=== PATIENT | male | born 2000 | race Caucasian/White ===

== ENCOUNTER 2019-05-30 | Emergency (ER) | payer BC | END 2019-05-30 21:45 | disposition home or self-care (01) | CPT/HCPCS: 87070; 87081; 99283 ==

== ENCOUNTER 2020-01-24 06:40 | Emergency (ER) | payer BC ==
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
--- NOTE | 2020-01-24 07:49 | ER ---
Nurse's Notes [facility] Name: Heriberto Duenas Age: 19 yrs Sex: Male : 2000 Arrival Date: 01/24/2020 Time: 06:45 Bed DIS1 Private MD: Diagnosis: Acute upper respiratory infection, unspecified;Bronchitis, not specified as acute or chronic;Vomiting;Diarrhea, unspecified Presentation: 01/23 07:13 Chief complaint: Patient states: cough, sneezing, SOB, diarrhea, fatigue, migraines, iw congestions, sinus pressure, vomited 3 times , symptoms started on Thanksgiving, tested for COVID yesterday and was negative , had rapid test done at [facility] urgent care. 07:13 Method Of Arrival: Ambulatory iw 07:16 Coronavirus screen: Client presents with at least one sign or symptom that may indicate iw coronavirus-19. Standard/surgical mask placed on the client. Provider contacted for isolation considerations. Ebola Screen: Patient negative for fever greater than or equal to 101.5 degrees Fahrenheit, and additional compatible Ebola Virus Disease symptoms Patient denies exposure to infectious person. Patient denies travel to an Ebola-affected area in the 21 days before illness onset. No symptoms or risks identified at this time. Initial Sepsis Screen: Does the patient meet any 2 criteria? No. Patient's initial sepsis screen is negative. Does the patient have a suspected source of infection? No. Patient's initial sepsis screen is negative. Risk Assessment: Do you want to hurt yourself or someone else? Patient reports no desire to harm self or others. Onset of symptoms was January 16, 2020. 07:16 Acuity: JASMIN 4 iw Historical: - Allergies: 07:18 NKA; iw - PMHx: 07:18 Asthma; iw - PSHx: 07:18 right leg; iw - Immunization history:: Adult Immunizations not up to date. - Social history:: Smoking status: Patient denies any tobacco usage or history of. Screenin:33 Abuse screen: Denies threats or abuse. Denies injuries from another. Nutritional ph screening: No deficits noted. Tuberculosis screening: No symptoms or risk factors identified. Fall Risk None identified. Assessment: 08:32 General: Appears in no apparent distress. comfortable, well groomed, Behavior is calm, ph cooperative, appropriate for age, Reports chills for fever for > 3 days. Pain: Complains of pain in headache. Neuro: Level of Consciousness is awake, alert, obeys commands, Oriented to person, place, time, situation, Reports headache. Cardiovascular: Capillary refill < 3 seconds in bilateral fingers. Respiratory: Reports shortness of breath on exertion cough that is Airway is patent Respiratory effort is even, unlabored, Respiratory pattern is regular, symmetrical. GI: Abdomen is non-distended, Reports diarrhea, nausea, vomiting, Patient currently denies abdominal pain. EENT: Reports nasal congestion pain when swallowing. Derm: Skin is intact, is healthy with good turgor, Skin is pink, warm \T\ dry. Musculoskeletal: Circulation, motion, and sensation intact. Range of motion: intact in all extremities. Vital Signs: 07:16 BP 146 / 90; Pulse 97; Resp 16; Temp 98.6; Pulse Ox 97% ; Weight 81.65 kg; Height 5 ft. iw 8 in. (172.72 cm); Pain 4/10; 08:34 BP 138 / 89; Pulse 91; Resp 18; Temp 98.5; Pulse Ox 97% on R/A; ph 07:16 Body Mass Index 27.37 (81.65 kg, 172.72 cm) iw ED Course: 06:45 Patient arrived in ED. ag3 07:17 Triage completed. iw 07:18 Arm band placed on. iw 07:23 Raúl Ferris MD is Attending Physician. liana 07:47 Nakul Cordoba DO is Referral Physician. liana 07:55 Kathrin Garcia, RN is Primary Nurse. ph 08:33 No provider procedures requiring assistance completed. COVID swab sent to lab. Flu ph and/or RSV swab sent to lab. Patient did not have IV access during this emergency room visit. 08:35 Patient has correct armband on for positive identification. Bed in low position. Call ph light in reach. Administered Medications: 08:22 Drug: Zithromax 500 mg Route: PO; ph 08:34 Follow up: Response: No adverse reaction ph Outcome: 07:48 Discharge ordered by . liana 08:35 Discharged to home ambulatory, with significant other. ph 08:35 Condition: good 08:35 Discharge instructions given to patient, Instructed on discharge instructions, follow up and referral plans. medication usage, Demonstrated understanding of instructions, follow-up care, medications, Prescriptions given X 5 08:36 Patient left the ED. ph Addendum: 01/27/2020 11:49 Addendum: COVID-19 Result: Negative result given to RN to notify pt. Attempted to i w contact pt regarding negative COVID-19 swab results. Left voice mail. 12:53 Addendum: COVID-19 Result: Negative result given to RN to notify pt. Notified pt of i w negative COVID 19 swab results. Pt advised that even with a negative test result they should remain in isolation until symptom free for 3 days without medication. Pt also advised to return to the ED for worsening symptoms. Signatures: Raúl Ferris MD MD cha Williams, Irene, RN RN iw Hall, Patricia, RN RN ph Gomez, Alice ag3
--- NOTE | 2020-01-24 07:49 | EDPHYS ---
Physician Documentation [facility] Name: Heriberto Duenas Age: 19 yrs Sex: Male : 2000 Arrival Date: 01/24/2020 Time: 06:45 Bed DIS1 Private MD: ED Physician Raúl Ferris HPI: 01/23 07:44 This 19 yrs old Male presents to ER via Ambulatory with complaints of liana Nausea/Vomiting/Diarrhea. 07:44 The patient presents to the emergency department with nausea, vomiting, diarrhea. liana Historical: - Allergies: 07:18 NKA; iw - PMHx: 07:18 Asthma; iw - PSHx: 07:18 right leg; iw - Immunization history:: Adult Immunizations not up to date. - Social history:: Smoking status: Patient denies any tobacco usage or history of. ROS: 07:44 Constitutional: Negative for fever, chills, and weight loss, Eyes: Negative for injury, liana pain, redness, and discharge, ENT: Negative for injury, pain, and discharge, Neck: Negative for injury, pain, and swelling, Cardiovascular: Negative for chest pain, palpitations, and edema, Back: Negative for injury and pain, : Negative for injury, bleeding, discharge, and swelling, MS/Extremity: Negative for injury and deformity, Skin: Negative for injury, rash, and discoloration, Neuro: Negative for headache, weakness, numbness, tingling, and seizure, Psych: Negative for depression, anxiety, suicide ideation, homicidal ideation, and hallucinations, Allergy/Immunology: Negative for hives, rash, and allergies, Endocrine: Negative for neck swelling, polydipsia, polyuria, polyphagia, and marked weight changes, Hematologic/Lymphatic: Negative for swollen nodes, abnormal bleeding, and unusual bruising. 07:44 Respiratory: Positive for cough, with green sputum. 07:44 Abdomen/GI: Positive for nausea and vomiting, diarrhea. Exam: 07:44 Constitutional: This is a well developed, well nourished patient who is awake, alert, liana and in no acute distress. Head/Face: Normocephalic, atraumatic. Eyes: Pupils equal round and reactive to light, extra-ocular motions intact. Lids and lashes normal. Conjunctiva and sclera are non-icteric and not injected. Cornea within normal limits. Periorbital areas with no swelling, redness, or edema. ENT: Nares patent. No nasal discharge, no septal abnormalities noted. Tympanic membranes are normal and external auditory canals are clear. Oropharynx with no redness, swelling, or masses, exudates, or evidence of obstruction, uvula midline. Mucous membranes moist. Neck: Trachea midline, no thyromegaly or masses palpated, and no cervical lymphadenopathy. Supple, full range of motion without nuchal rigidity, or vertebral point tenderness. No Meningismus. Chest/axilla: Normal chest wall appearance and motion. Nontender with no deformity. No lesions are appreciated. Cardiovascular: Regular rate and rhythm with a normal S1 and S2. No gallops, murmurs, or rubs. Normal PMI, no JVD. No pulse deficits. Back: No spinal tenderness. No costovertebral tenderness. Full range of motion. Male : Normal genitalia with no discharge or lesions. Skin: Warm, dry with normal turgor. Normal color with no rashes, no lesions, and no evidence of cellulitis. MS/ Extremity: Pulses equal, no cyanosis. Neurovascular intact. Full, normal range of motion. Neuro: Awake and alert, GCS 15, oriented to person, place, time, and situation. Cranial nerves II-XII grossly intact. Motor strength 5/5 in all extremities. Sensory grossly intact. Cerebellar exam normal. Normal gait. Psych: Awake, alert, with orientation to person, place and time. Behavior, mood, and affect are within normal limits. 07:44 Respiratory: the patient does not display signs of respiratory distress, Breath sounds: rhonchi, that are mild, are scattered, Respiratory rate: 16 Vital Signs: 07:16 BP 146 / 90; Pulse 97; Resp 16; Temp 98.6; Pulse Ox 97% ; Weight 81.65 kg; Height 5 ft. iw 8 in. (172.72 cm); Pain 4/10; 08:34 BP 138 / 89; Pulse 91; Resp 18; Temp 98.5; Pulse Ox 97% on R/A; ph 07:16 Body Mass Index 27.37 (81.65 kg, 172.72 cm) iw MDM: 07:23 Patient medically screened. liana 07:45 Differential diagnosis: Nonspecific abd pain, viral gastroenteritis, gastroenteritis. liana Differential Diagnosis: Bronchitis Influenza Upper Respiratory Infection Asthma Exacerbation. Data reviewed: vital signs, nurses notes. 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 Counseling: I had a detailed discussion with the patient and/or guardian regarding: the historical points, exam findings, and any diagnostic results supporting the discharge/admit diagnosis. 01/23 07:44 Order name: Influ[facility] Screen [facility]a [facility]T\ B) [facility] 01/23 07:44 Order name: [facility]-19 [facility] Administered Medications: 08:22 Drug: Zithromax 500 mg Route: PO; ph 08:34 Follow up: Response: No adverse reaction ph Disposition: 01/24/20 07:48 Discharged to Home. Impression: Acute upper respiratory infection, unspecified, Bronchitis, not specified as acute or chronic, Vomiting, Diarrhea, unspecified. - Condition is Stable. - Discharge Instructions: Acute Bronchitis, Adult, Food Choices to Help Relieve Diarrhea, Adult, Diarrhea, Adult, How to Use an Inhaler, Nausea and Vomiting, Adult, Upper Respiratory Infection, Adult, Cool Mist Vaporizer. - Prescriptions for Bromfed DM 2- 30-10 mg/5 mL Oral syrup - take 10 milliliter by ORAL route every 6 hours; 180 milliliter. Zofran 4 mg Oral Tablet - take 1 tablet by ORAL route every 12 hours As needed; 14 tablet. Medrol (Wilfrid) 4 mg Oral Tablets, Dose Pack - take 1 tablet by ORAL route as directed - follow package instructions; 1 packet. Albuterol Sulfate 90 mcg/actuation - inhale 1-2 puff by INHALATION route every 4-6 hours; 1 Inhaler. Zithromax 500 mg Oral Tablet - take 1 tablet by ORAL route once daily for 4 days; 4 tablet. - Work release form, Medication Reconciliation Form, Thank You Letter, Antibiotic Education, Prescription Opioid Use form. - Follow up: Private Physician; When: 2 - 3 days; Reason: Recheck today's complaints, Continuance of care, Re-evaluation by your physician. Follow up: Nakul Cordoba DO; When: 2 - 3 days; Reason: Recheck today's complaints, Re-evaluation by your physician. - Problem is new. - Symptoms have improved. Signatures: Dispatcher [employer] EDRaúl Cornelius MD MD cha Williams, Irene, RN RN Garcia, Kathrin, RN RN ph Corrections: (The following items were deleted from the chart) 08:36 07:48 01/24/2020 07:48 Discharged to Home. Impression: Acute upper respiratory ph infection, unspecified; Bronchitis, not specified as acute or chronic; Vomiting; Diarrhea, unspecified. Condition is Stable. Forms are Medication Reconciliation Form, Thank You Letter, Antibiotic Education, Prescription Opioid Use. Follow up: Private Physician; When: 2 - 3 days; Reason: Recheck today's complaints, Continuance of care, Re-evaluation by your physician. Follow up: Nakul Cordoba; When: 2 - 3 days; Reason: Recheck today's complaints, Re-evaluation by your physician. Problem is new. Symptoms have improved. liana
[2020-01-24] MEDS ORDERED: AZITHROMYCIN 250 MG TAB ONE (08:13)
[2020-01-29 16:21] VITALS: O2SAT 97
[2020-01-29 16:23] VITALS: BP 138/89; TEMP 98.5
== END 2020-01-24 08:36 | disposition home or self-care (01) ==
LOC: ER 06:40
DX: J40 Bronchitis, not specified as acute or chronic (principal); R19.7 Diarrhea, unspecified; Z20.828 Contact with and (suspected) exposure to other viral communicable diseases
CPT/HCPCS: 87804 ×2; 99283; U0002